=== PATIENT | male | born 2000 | race African-American/Black ===

== ENCOUNTER 2023-07-29 19:40 | Emergency (ER) | payer SELFPAY ==
[2023-07-29 20:23] LABS: BASOPHILS ABSOLUTE AUTO 0.02 10^3/uL (0.00-0.50); BASOPHILS PERCENT AUTO 0.2 % (0-1); EOSINOPHILS ABSOLUTE AUTO 0.01 10^3/uL (0.00-1.50); EOSINOPHILS PERCENT AUTO 0.1 % (0-6); HEMATOCRIT 40.3 % (42.0-52.0); HEMOGLOBIN 14.2 g/dL (14.0-18.0); LYMPHOCYTES ABSOLUTE AUTO 1.14 10^3/uL (0.60-5.00); LYMPHOCYTES PERCENT AUTO 13.6 % (24-44); MEAN CORPUSCULAR HEMOGLOBIN 31.3 pg (27.0-32.0); MEAN CORPUSCULAR HGB CONC 35.2 g/dL (32.0-36.0); NEUTROPHILS ABSOLUTE AUTO 6.69 x10^3/uL (1.80-8.00); NEUTROPHILS PERCENT AUTO 80.1 % (41-71); PLATELET COUNT,PLT 236 10^3/uL (150-400); RED BLOOD CELL COUNT 4.53 x10^6/uL (4.50-6.00); WHITE BLOOD CELL COUNT,WBC 8.4 10^3/uL (4.0-11.0)
[2023-07-29 20:24] LABS: APPEARANCE,URINE CLEAR (CLEAR); BILIRUBIN,URINE NEGATIVE (NEGATIVE); COLOR,URINE LIGHT YELLOW (YELLOW); GLUCOSE,URINE NEGATIVE (NEGATIVE); KETONES,URINE NEGATIVE (NEGATIVE); LEUKOCYTE ESTERASE,URINE NEGATIVE (NEGATIVE); NITRITE,URINE NEGATIVE (NEGATIVE); PROTEIN,URINE NEGATIVE (NEGATIVE); UROBILINOGEN,URINE 0.2 EU/dL (0.2-1.0)
[2023-07-29 20:31] LABS: OCCULT BLOOD,URINE NEGATIVE (NEGATIVE)
[2023-07-29 20:36] LABS: ALANINE AMINOTRANSFERASE,ALT 44 U/L (12-78); ALBUMIN 3.9 g/dL (3.4-5.0); ALKALINE PHOSPHATASE 79 U/L (46-116); ASPARTATE AMNIOTRANSFERASE,AST 28 U/L (15-37); BILIRUBIN TOTAL 0.5 mg/dL (0.0-1.0); BLOOD UREA NITROGEN,BUN 8 mg/dL (7-18); C-REACTIVE PROTEIN < 0.50 mg/dL (<=0.50); CALCIUM 8.5 mg/dL (8.4-10.1); CARBON DIOXIDE,CO2 26 mmol/L (21-32); CHLORIDE,CL 102 mEq/L (98-106); CREATININE 0.9 mg/dL (0.7-1.3); ESTIMATED GFR 123 mL/min (>=60); GLUCOSE RANDOM 115 mg/dL (75-99); MAGNESIUM 1.9 mg/dL (1.8-2.4); PROTEIN TOTAL,TP 7.9 g/dL (6.4-8.2); SODIUM,NA 139 mEq/L (136-145)
[2023-07-29] MEDS: Potassium Chloride 10 MEQ Tab.ER PO ONE (20:43)
[2023-07-29] MEDS: Take Home: Doxycycline 100 MG Cap, 4 Cap Pack PO ONE (20:58)
[2023-07-29] MEDS: cefTRIAXone 1 GM Vial IM ONE (20:58)
[2023-07-29] MEDS: Take Home: Acetaminophen/HYDROcodone 325-5 MG, 2 Tab Pack PO ONE (20:58)
== END 2023-07-29 21:40 | disposition home or self-care (01) ==
LOC: CC.ED 19:40
DX: N45.1 Epididymitis (principal); Z79.899 Other long term (current) drug therapy
CPT/HCPCS: 36415; 80053; 81003; 83735; 85025; 86140; 96372; 99284; A9270; J0696; 99283

== ENCOUNTER 2023-08-21 20:34 | Emergency (ER) | payer SELFPAY ==
[2023-08-21 21:08] LABS: BASOPHILS ABSOLUTE AUTO 0.01 10^3/uL (0.00-0.50); BASOPHILS PERCENT AUTO 0.2 % (0-1); EOSINOPHILS ABSOLUTE AUTO 0.01 10^3/uL (0.00-1.50); EOSINOPHILS PERCENT AUTO 0.2 % (0-6); HEMATOCRIT 44.3 % (42.0-52.0); HEMOGLOBIN 15.8 g/dL (14.0-18.0); IMMATURE GRAN ABSOLUTE AUTO 0.01 10^3/uL (0.00-0.49); IMMATURE GRAN PERCENT AUTO 0.2 % (0.0-4.9); LYMPHOCYTES ABSOLUTE AUTO 2.01 10^3/uL (0.60-5.00); LYMPHOCYTES PERCENT AUTO 36.5 % (24-44); MEAN CORPUSCULAR HEMOGLOBIN 31.5 pg (27.0-32.0); MEAN CORPUSCULAR HGB CONC 35.7 g/dL (32.0-36.0); MEAN CORPUSCULAR VOLUME 88.4 fL (83.0-97.0); MONOCYTES ABSOLUTE AUTO 0.36 10^3/uL (0.00-1.50); MONOCYTES PERCENT AUTO 6.5 % (0-10); NEUTROPHILS ABSOLUTE AUTO 3.11 x10^3/uL (1.80-8.00); NEUTROPHILS PERCENT AUTO 56.4 % (41-71); PLATELET COUNT,PLT 281 10^3/uL (150-400); RED BLOOD CELL COUNT 5.01 x10^6/uL (4.50-6.00); WHITE BLOOD CELL COUNT,WBC 5.5 10^3/uL (4.0-11.0)
[2023-08-21 21:21] LABS: ALANINE AMINOTRANSFERASE,ALT 43 U/L (12-78); ALKALINE PHOSPHATASE 82 U/L (46-116); ASPARTATE AMNIOTRANSFERASE,AST 21 U/L (15-37); BILIRUBIN TOTAL 0.9 mg/dL (0.0-1.0); BLOOD UREA NITROGEN,BUN 5 mg/dL (7-18); CALCIUM 9.3 mg/dL (8.4-10.1); CARBON DIOXIDE,CO2 28 mmol/L (21-32); CHLORIDE,CL 101 mEq/L (98-106); GLUCOSE RANDOM 118 mg/dL (75-99); POTASSIUM,K 3.1 mEq/L (3.5-5.0); PROTEIN TOTAL,TP 8.5 g/dL (6.4-8.2); SODIUM,NA 141 mEq/L (136-145)
[2023-08-21 21:22] LABS: C-REACTIVE PROTEIN < 0.50 mg/dL (<=0.50); ESTIMATED GFR 108 mL/min (>=60)
[2023-08-21] MEDS: Bisacodyl 5 MG Tab PO ONE (21:47)
[2023-08-21 22:57] LABS: APPEARANCE,URINE CLEAR (CLEAR); BILIRUBIN,URINE NEGATIVE (NEGATIVE); COLOR,URINE YELLOW (YELLOW); GLUCOSE,URINE NEGATIVE (NEGATIVE); KETONES,URINE NEGATIVE (NEGATIVE); LEUKOCYTE ESTERASE,URINE NEGATIVE (NEGATIVE); NITRITE,URINE NEGATIVE (NEGATIVE); OCCULT BLOOD,URINE TRACE-INTACT (NEGATIVE); PH,URINE 6.5 (4.5-8.0); PROTEIN,URINE NEGATIVE (NEGATIVE); UROBILINOGEN,URINE 0.2 EU/dL (0.2-1.0)
[2023-08-21 23:01] LABS: BACTERIA,URINE NOT SEEN /HPF (NOT SEEN); RBC,URINE 0-5 /HPF (0-5); SQUAMOUS EPITHELIAL CELLS,UR NOT SEEN /HPF (NOT SEEN); WBC,URINE NOT SEEN /HPF (0-5)
== END 2023-08-21 21:56 | disposition home or self-care (01) ==
LOC: CC.ED 20:34
DX: K59.00 Constipation, unspecified (principal)
CPT/HCPCS: 36415; 74019; 80053; 81001; 85025; 86140; 99284; A9270